=== PATIENT | female | born 1960 | race Caucasian/White ===

== ENCOUNTER 2018-01-25 09:05 | Emergency (ER) | payer BC, OTHER ==
[2018-01-25 09:39] VITALS: BP 100/57
--- NOTE | 2018-01-25 09:45 | UC ---
Throat Pain/Nasal Hermilo HPI - HPI Summary HPI Summary: Patient urgent care today with 3-1/2 weeks of worsening sinus pain and congestion has postnasal drip sore throat cough. Has been trying increase fluids some [id number] remedies without much relief - History of Current Complaint Chief Complaint: UCRespiratory Stated Complaint: SINUSES Time Seen by Provider: 01/25/18 09:30 Hx Obtained From: Patient Hx Last Menstrual Period: n/a ?: No Onset/Duration: Gradual Onset, Lasting Weeks - 3.5 Severity: Moderate Cough: Nonproductive Associated Signs & Symptoms: Positive: Hoarseness, Sinus Discomfort, Nasal Discharge - Allergies/Home Medications Allergies/Adverse Reactions: Allergies Allergy/AdvReac Type Severity Reaction Status Date / Time Penicillins Allergy Hives Verified 01/25/18 09:35 Sulfa (Sulfonamide Allergy Hives Verified 01/25/18 09:35 Antibiotics) Home Medications: Home Medications Estrogens,Conj/Bazedoxifene [Duavee 0.45-20 mg Tablet] 1 tab PO DAILY 01/25/18 [ History Confirmed 01/25/18] PMH/Surg Hx/FS Hx/Imm Hx Previously Healthy: Yes - Surgical History Surgical History: None - Family History Known Family History: Positive: None - Social History Occupation: Employed Full-time Lives: With Family Alcohol Use: Occasionally Substance Use Type: None Smoking Status (MU): Never Smoked Tobacco Review of Systems Constitutional: Negative Skin: Negative Eyes: Negative ENT: Sore Throat, Ear Ache, Nasal Discharge, Sinus Congestion, Sinus Pain/ Tenderness Respiratory: Cough Cardiovascular: Negative Gastrointestinal: Negative Genitourinary: Negative Motor: Negative Neurovascular: Negative Musculoskeletal: Negative Neurological: Negative Psychological: Negative Is Patient Immunocompromised?: No All Other Systems Reviewed And Are Negative: Yes Physical Exam Triage Information Reviewed: Yes Appearance: Well-Appearing, No Pain Distress, Well-Nourished Vital Signs: Initial Vital Signs Temp 98.7 F 01/25/18 09:33 Pulse 60 01/25/18 09:33 Resp 17 01/25/18 09:33 BP 100/57 01/25/18 09:33 Pulse Ox 100 01/25/18 09:33 Vital Signs Reviewed: Yes Eye Exam: Normal Eyes: Positive: Conjunctiva Clear ENT Exam: Normal ENT: Positive: Normal ENT inspection, Hearing grossly normal, Pharynx normal, Nasal congestion, Nasal drainage, TMs normal, Sinus tenderness, Uvula midline. Negative: Tonsillar swelling, Tonsillar exudate, Trismus, Muffled voice, Hoarse voice, Dental tenderness Dental Exam: Normal Neck exam: Normal Neck: Positive: Supple, Nontender, No Lymphadenopathy Respiratory Exam: Normal Respiratory: Positive: Chest non-tender, Lungs clear, Normal breath sounds, No respiratory distress, No accessory muscle use Cardiovascular Exam: Normal Cardiovascular: Positive: RRR, No Murmur, Pulses Normal, Brisk Capillary Refill Musculoskeletal Exam: Normal Musculoskeletal: Positive: Strength Intact, ROM Intact, No Edema Neurological Exam: Normal Neurological: Positive: Alert, Muscle Tone Normal Psychological Exam: Normal Skin Exam: Normal Throat Pain/Nasal Course/Dx - Course Assessment/Plan: flonase, zithromax, increase fluids, tylenol, ibuprofen follow with pcp prn - Differential Dx/Diagnosis Provider Diagnoses: Acute sinusitis Discharge - Sign-Out/Discharge Documenting (check all that apply): Discharge/Admit/Transfer - Discharge Plan Condition: Stable Disposition: HOME Prescriptions: Azithromycin TAB* [Zithromax TAB (Z-BRANDIN) 250 mg #6 tabs] 2 tab PO .TODAY, THEN 1 DAILY #1 brandin Fluticasone NASAL SPRAY 50MCG* [Flonase NASAL SPRAY 50MCG*] 2 spray BOTH NARES DAILY #1 btl Patient Education Materials: Sinusitis (ED) Referrals: Trav Harry MD [Primary Care Provider] - If Needed - Billing Disposition and Condition Condition: STABLE Disposition: HOME
== END 2018-01-25 10:01 | disposition home or self-care (01) ==
LOC: UCCORT 09:05
DX: J01.90 Acute sinusitis, unspecified (principal); Z88.0 Allergy status to penicillin; Z88.2 Allergy status to sulfonamides
CPT/HCPCS: 99202; G0463

== ENCOUNTER 2019-02-10 16:53 | Emergency (ER) | payer BC, OTHER | END 2019-02-10 18:08 | disposition left against medical advice (07) | LOC: UCCORT 16:53 | DX: J34.9 Unspecified disorder of nose and nasal sinuses (principal); Z53.21 Procedure and treatment not carried out due to patient leaving prior to being seen by health care provider ==

== ENCOUNTER 2019-02-11 07:12 | Emergency (ER) | payer BC, OTHER ==
[2019-02-11 07:21] VITALS: BP 143/77
--- NOTE | 2019-02-11 07:40 | UC ---
Throat Pain/Nasal Hermilo HPI - HPI Summary HPI Summary: 58-year-old female comes in with a chief complaint of one week of runny nose sinus pressure and postnasal drip. She's feeling pain in her sinuses this reminds her of a sinus infection. Initially she thought it was more allergies and she was taking Sudafed which helped with the symptoms some but overall his symptoms are worsening. No fevers measured. Patient has tried Zyrtec in the past but it keeps her awake all night so she did not retake at this time. Last year she had similar symptoms at this time a year and got better after a Z-Brandin and Flonase. No wheezing no shortness of breath. Rhinorrhea is green. - History of Current Complaint Chief Complaint: UCGeneralIllness Stated Complaint: SINUS COMPLAINT Time Seen by Provider: 02/11/19 07:32 Hx Last Menstrual Period: n/a Pain Intensity: 0 - Allergies/Home Medications Allergies/Adverse Reactions: Allergies Allergy/AdvReac Type Severity Reaction Status Date / Time Penicillins Allergy Hives Verified 02/11/19 07:22 Sulfa (Sulfonamide Allergy Hives Verified 02/11/19 07:22 Antibiotics) Home Medications: Home Medications Acetaminophen [Tylenol] 1 tab PO ONCE 02/11/19 [History Confirmed 02/11/19] Pseudoephedrine HCl [Sudafed] 1 tab PO ONCE 02/11/19 [History Confirmed 02/11/19 ] PMH/Surg Hx/FS Hx/Imm Hx Previously Healthy: Yes - Surgical History Surgical History: None - Family History Known Family History: Positive: None - Social History Alcohol Use: Occasionally Substance Use Type: None Smoking Status (MU): Never Smoked Tobacco Review of Systems All Other Systems Reviewed And Are Negative: Yes Constitutional: Positive: Negative Skin: Positive: Negative Eyes: Positive: Negative ENT: Positive: Sore Throat, Nasal Discharge, Sinus Congestion, Sinus Pain/ Tenderness Respiratory: Positive: Negative Cardiovascular: Positive: Negative Gastrointestinal: Positive: Negative Motor: Positive: Negative Neurovascular: Positive: Negative Musculoskeletal: Positive: Negative Neurological: Positive: Negative Psychological: Positive: Negative Is Patient Immunocompromised?: No Physical Exam Triage Information Reviewed: Yes Appearance: No Pain Distress, Well-Nourished, Ill-Appearing - mild Vital Signs: Initial Vital Signs Temp 98.6 F 02/11/19 07:18 Pulse 96 02/11/19 07:18 Resp 20 02/11/19 07:18 BP 143/77 02/11/19 07:18 Pulse Ox 98 02/11/19 07:18 Vital Signs Reviewed: Yes Eye Exam: Normal Eyes: Positive: Conjunctiva Clear ENT: Positive: Pharyngeal erythema, Nasal congestion, Nasal drainage, TMs normal Neck exam: Normal Neck: Positive: Supple Respiratory: Positive: Lungs clear, Normal breath sounds, No respiratory distress Cardiovascular: Positive: RRR Musculoskeletal Exam: Normal Musculoskeletal: Positive: Strength Intact, ROM Intact Neurological Exam: Normal Neurological: Positive: Alert, Muscle Tone Normal Psychological Exam: Normal Psychological: Positive: Age Appropriate Behavior Skin Exam: Normal Throat Pain/Nasal Course/Dx - Course Course Of Treatment: DISCUSSED VIRAL VERSES BACTERIAL INFECTION AND THE ROLE OF ANTIBIOTICS. THE PATIENT PREFERS TO BE ON ANTIBIOTICS AT THIS TIME. - Differential Dx/Diagnosis Provider Diagnosis: Sinusitis Discharge - Sign-Out/Discharge Documenting (check all that apply): Patient Departure All imaging exams completed and their final reports reviewed: No Studies - Discharge Plan Condition: Stable Disposition: HOME Prescriptions: Azithromyxin BRANDIN (NF) [Z-Brandin (Zithromax) 250 mg tabs #6] 2 tab PO .TODAY, THEN 1 DAILY #6 tab Fluticasone NASAL SPRAY 50MCG* [Flonase NASAL SPRAY 50MCG*] 2 spray BOTH NARES DAILY #1 btl Patient Education Materials: Sinusitis (ED) Referrals: Trav Harry MD [Primary Care Provider] - Additional Instructions: FOLLOW UP WITH YOUR DOCTOR IF NOT COMPLETELY IMPROVED. GET RECHECKED SOONER IF YOUR CONDITION WORSENS OR ANY QUESTIONS OR CONCERNS. - Billing Disposition and Condition Condition: STABLE Disposition: Home
== END 2019-02-11 07:47 | disposition home or self-care (01) ==
LOC: UCCORT 07:12
DX: J32.9 Chronic sinusitis, unspecified (principal); Z88.0 Allergy status to penicillin; Z88.2 Allergy status to sulfonamides
CPT/HCPCS: 99212; G0463

== ENCOUNTER 2019-05-26 16:03 | Emergency (ER) | payer BC, OTHER ==
[2019-05-26 16:14] VITALS: BP 121/59
--- NOTE | 2019-05-26 16:35 | UC ---
Complaint Female HPI - HPI Summary HPI Summary: 58-year-old female who has had burning on urination over the past 2 weeks. She has been able to treat the symptoms with cranberry juice however today they worsen. She denies any fever or chills and no back pain. She does not have a history of urinary tract infections. No abnormal vaginal discharge. - History Of Current Complaint Chief Complaint: UCGU Stated Complaint: UTI SYMPTOMS Time Seen by Provider: 05/26/19 16:19 Hx Obtained From: Patient Hx Last Menstrual Period: n/a ?: No Onset/Duration: Gradual Onset Timing: Intermittent Severity Initially: Mild Severity Currently: Mild Pain Intensity: 0 Character: Burning Aggravating Factor(s): Urination Alleviating Factor(s): Other - Creamery just over the past 2 weeks has helped with symptoms. Associated Signs And Symptoms: Negative: Fever, Back Pain, Vaginal Bleeding/ Discharge, Vaginal Discharge - Allergies/Home Medications Allergies/Adverse Reactions: Allergies Allergy/AdvReac Type Severity Reaction Status Date / Time Penicillins Allergy Hives Verified 05/26/19 16:14 Sulfa (Sulfonamide Allergy Hives Verified 05/26/19 16:14 Antibiotics) PMH/Surg Hx/FS Hx/Imm Hx Previously Healthy: Yes - Surgical History Surgical History: None - Family History Known Family History: Positive: None - Social History Occupation: Employed Full-time Alcohol Use: Occasionally Substance Use Type: None Smoking Status (MU): Never Smoked Tobacco Review of Systems All Other Systems Reviewed And Are Negative: Yes Genitourinary: Positive: Dysuria, Frequency. Negative: Vaginal/Penile Burning, Vaginal/Penile Itching, Vaginal/Penile Discharge, Vaginal/Penile Pain, Vaginal/ Penile Tenderness Is Patient Immunocompromised?: No Physical Exam Triage Information Reviewed: Yes Appearance: Well-Appearing, No Pain Distress, Well-Nourished Vital Signs: Initial Vital Signs Temp 98.5 F 05/26/19 16:11 Pulse 56 05/26/19 16:11 Resp 16 05/26/19 16:11 BP 121/59 05/26/19 16:11 Pulse Ox 100 05/26/19 16:11 Vital Signs Reviewed: Yes Respiratory: Positive: Lungs clear, Normal breath sounds, No respiratory distress, No accessory muscle use Cardiovascular: Positive: RRR, No Murmur, Pulses Normal, Brisk Capillary Refill Abdomen Description: Positive: No Organomegaly, Soft, Other: - Minimal tenderness on palpation in the left suprapubic area.. Negative: CVA Tenderness (R), CVA Tenderness (L), Distended, Guarding, Hepatomegaly, McBurney's Point Tenderness, Splenomegaly Bowel Sounds: Positive: Present Musculoskeletal Exam: Normal Neurological Exam: Normal Psychological Exam: Normal Skin Exam: Normal Complaint Female Dx - Course Course Of Treatment: Patient is comfortable here. I'm going to treat her with Macrobid twice a day for 7 days. She is to increase fluids. Go to the emergency room if any fever, chills, vomiting or back pain and unable keep the medication down. She is to follow-up with her primary care provider if no improvement in 3 or 4 days. - Differential Dx/Diagnosis Provider Diagnosis: UTI (urinary tract infection) Discharge ED - Sign-Out/Discharge Documenting (check all that apply): Patient Departure All imaging exams completed and their final reports reviewed: No Studies - Discharge Plan Condition: Good Disposition: HOME Prescriptions: Nitrofurantoin Monohyd/M-Cryst [Macrobid 100 mg Capsule] 100 mg PO BID 7 Days # 14 cap Patient Education Materials: Urinary Tract Infection in Women (DC) Referrals: Trav Harry MD [Primary Care Provider] - Additional Instructions: Increase fluids, follow-up with your primary care provider if no improvement in 3 or 4 days. Go to the emergency room if you develop any fever, chills, back pain or vomiting unable keep the medication down. - Billing Disposition and Condition Condition: GOOD Disposition: Home
--- NOTE | 2019-05-29 07:37 | UC ---
- Progress Note Progress Note: Patient was seen for UTI-type symptoms. Patient started on nitrofurantoin. Patient's culture returned today with no growth. No change in patient's plan. Course/Dx - Diagnoses Provider Diagnoses: UTI (urinary tract infection) Discharge ED - Sign-Out/Discharge Documenting (check all that apply): Post-Discharge Follow Up All imaging exams completed and their final reports reviewed: No Studies - Discharge Plan Condition: Good Disposition: HOME Prescriptions: Nitrofurantoin Monohyd/M-Cryst [Macrobid 100 mg Capsule] 100 mg PO BID 7 Days # 14 cap Patient Education Materials: Urinary Tract Infection in Women (DC) Referrals: Trav Harry MD [Primary Care Provider] - Additional Instructions: Increase fluids, follow-up with your primary care provider if no improvement in 3 or 4 days. Go to the emergency room if you develop any fever, chills, back pain or vomiting unable keep the medication down. - Billing Disposition and Condition Condition: GOOD Disposition: Home
== END 2019-05-26 16:40 | disposition home or self-care (01) ==
LOC: UCCORT 16:06
DX: N39.0 Urinary tract infection, site not specified (principal); Z88.0 Allergy status to penicillin; Z88.2 Allergy status to sulfonamides
CPT/HCPCS: 81003; 87086; 99212; G0463